=== PATIENT | male | born 1960 | race Caucasian/White ===

== ENCOUNTER 2018-01-03 16:25 | Emergency (ER) | payer BC ==
[2018-01-03 16:46] VITALS: BP 161/101
[2018-01-03] MEDS ORDERED: Amoxicillin/Clavulanate TAB* 875 MG PO ONE (17:38)
--- NOTE | 2018-01-03 17:38 | UC ---
Dental HPI - HPI Summary HPI Summary: ONSET OF RIGHT UPPER TOOTH PAIN YESTERDAY. HAS SOME SWELLING IN HIS RIGHT CHEEK. HAS KNOWN POOR DENTITION WITH FRACTURED TEETH AND DIFFUSE DECAY. NO FEVER, NAUSEA/VOMITING. [place] SO HAS NOT YET ESTABLISHED WITH A PCP OR A DENTIST. - History of Current Complaint Chief Complaint: UCDentalProblem Stated Complaint: TOOTH ABCESS Time Seen by Provider: 01/03/18 17:11 Hx Obtained From: Patient Onset/Duration: Gradual Onset, Lasting Days - 1 DAY, Still Present Severity: Moderate Pain Intensity: 7 Pain Scale Used: 0-10 Numeric Aggravating Factor(s): Chewing Alleviating Factor(s): Nothing - Allergies/Home Medications Allergies/Adverse Reactions: Allergies Allergy/AdvReac Type Severity Reaction Status Date / Time Tetracyclines Allergy Swelling Verified 01/03/18 16:47 PMH/Surg Hx/FS Hx/Imm Hx Cardiovascular History: Hypertension - Surgical History Surgical History: Yes Surgery Procedure, Year, and Place: Heart - Family History Known Family History: Positive: Hypertension - Social History Alcohol Use: Occasionally Substance Use Type: None Smoking Status (MU): Never Smoked Tobacco Review of Systems Constitutional: Negative ENT: Dental Pain Respiratory: Negative Cardiovascular: Negative Gastrointestinal: Negative All Other Systems Reviewed And Are Negative: Yes Physical Exam Triage Information Reviewed: Yes Appearance: Well-Appearing, No Pain Distress, Well-Nourished Vital Signs: Initial Vital Signs Temp 100.5 F 01/03/18 16:43 Pulse 97 01/03/18 16:43 Resp 18 01/03/18 16:43 BP 161/101 01/03/18 16:43 Pulse Ox 100 01/03/18 16:43 Vital Signs Reviewed: Yes Eyes: Positive: Conjunctiva Clear ENT: Positive: Hearing grossly normal Dental: Positive: Percussion Tenderness @ - RIGHT UPPER 1ST PREMOLAR, Gross Decay/Caries @ Neck: Positive: Supple Respiratory: Positive: No respiratory distress, No accessory muscle use Cardiovascular: Positive: Pulses Normal Abdomen Description: Positive: Soft Musculoskeletal: Positive: No Edema Neurological: Positive: Alert Psychological: Positive: Age Appropriate Behavior Skin: Negative: rashes Dental Complaint Course/Dx - Differential Dx/Diagnosis Provider Diagnoses: TOOTHACHE/DENTAL ABSCESS - RIGHT UPPER 1ST PREMOLAR Discharge - Sign-Out/Discharge Documenting (check all that apply): Patient Departure All imaging exams completed and their final reports reviewed: No Studies - Discharge Plan Condition: Stable Disposition: HOME Prescriptions: Amoxicillin/Clavulanate TAB* [Augmentin TAB 875*] 875 mg PO BID #20 tab Chlorhexidine MW 0.12% 473ML* [Peridex Mouth Wash 0.12%*] 15 ml SWISH SPIT BID # 1 bottle Ibuprofen TAB* [Motrin TAB* 800 MG] 800 mg PO Q8H PRN #30 tab PRN Reason: Pain Patient Education Materials: Dental Abscess (ED), Toothache (ED) Referrals: No Primary Care Phys,NOPCP [Primary Care Provider] - Additional Instructions: CALL A DENTIST FIRST THING THURSDAY MORNING. BE SURE TO RINSE YOUR MOUTH WITH WATER EVERY TIME AFTER EATING OR DRINKING. CALL THE NUMBER BELOW FOR ASSISTANCE IN ESTABLISHING WITH A PCP An additional resource available to assist in finding the appropriate physician for your health care needs is [facility] ([facility]). You may contact them by calling [phone]. - Billing Disposition and Condition Condition: STABLE Disposition: Home
== END 2018-01-03 17:44 | disposition home or self-care (01) ==
LOC: UCEAST 16:25
DX: K04.7 Periapical abscess without sinus (principal); K08.89 Other specified disorders of teeth and supporting structures; Z88.1 Allergy status to other antibiotic agents; I10 Essential (primary) hypertension
CPT/HCPCS: 99202; A9270-GY; G0463

== ENCOUNTER 2023-09-05 12:02 | Inpatient (IN) ==
[2023-09-05 12:55] LABS: Hematocrit 35.7 % (38-53); Hemoglobin 12.1 g/dL (13.2-16.3); Mean Corpuscular Hemoglobin 30.3 pg (27-33); Mean Corpuscular Hgb Conc 33.9 g/dL (31-36); Mean Corpuscular Volume 89.3 fL (80-97); Mean Platelet Volume 6.6 fL (7.5-11.2); Platelet Count 351 10^3/uL (150-450); Red Cell Distribution Width 13.8 % (12-17); White Blood Count 17.3 10^3/uL (3.6-10.2)
[2023-09-05 13:15] LABS: Potassium 3.7 mmol/L (3.5-5.0)
[2023-09-05 13:16] LABS: Albumin 4.4 g/dL (3.2-5.2); Albumin/Globulin Ratio 1.8 (1-3); Calcium 11.9 mg/dL (8.6-10.3); Creatinine, Serum 0.81 mg/dL (0.67-1.17); Globulin 2.5 g/dL (2-4); Total Bilirubin 0.6 mg/dL (0.2-1.0); Total Protein 6.9 g/dL (6.4-8.9); eGFR CKD-EPI 99.7 (>60)
[2023-09-05] MEDS ORDERED: Lorazepam PYXIS KEY PRN ×3 (13:21→17:18)
[2023-09-05] MEDS: Lactated Ringers 1000 ml BAG 1,000 ML IV ONE (13:22)
[2023-09-05] MEDS: LORazepam 2 mg VIAL 1 ml IV PUSH ONE ×3 (13:27→17:28)
[2023-09-05] MEDS: Ondansetron 4 mg VIAL 2 MG/ML 2 ml VIAL IV ONE (13:27)
[2023-09-05] MEDS: Pantoprazole VIAL 40 MG VIAL IV ONE (13:28)
[2023-09-05] MEDS: D5NS 0.9% 1000 ml BAG 1,000 ML IV ONE ×2 (14:20→14:54)
[2023-09-05 14:33] LABS: RBC Morphology Normal (Normal)
[2023-09-05 16:07] LABS: Urine Benzodiazepine Screen None Detected (None Detect); Urine Cannabinoids Screen None Detected (None Detect); Urine Opiates Screen None Detected (None Detect)
[2023-09-05 16:29] LABS: Urine Appearance Clear; Urine Bilirubin Negative (Negative); Urine Blood Negative (Negative); Urine Color Light-Yellow; Urine Glucose 4+ (>=1000 mg/dL) (Negative); Urine Ketones 2+ (Negative); Urine Nitrite Negative (Negative); Urine Protein Trace (Negative); Urine Urobilinogen Negative (Negative); Urine pH 5.5 (5.0-8.0)
[2023-09-05] MEDS: Thiamine 100 MG/ML 2 ml VIAL 100 MG, Folic Acid IV 1 MG, Multiple Vitamin IV ADULT 10 M... IV ONE (16:49)
[2023-09-05] MEDS: Tetan/Diph/Pertus SYR(Tdap) 0.5 ML SYR(BOOSTRIX) use SYR contains LATEX IM ONE (21:33)
[2023-09-05 21:49] LABS: Venous Bicarbonate HCO3 28.7 mmol/L (24-28)
[2023-09-05] MEDS: Thiamine 100 MG/ML 2 ml VIAL (200 mg) IM ONE (22:16)
[2023-09-05 22:32] LABS: Calcium 9.1 mg/dL (8.6-10.3); Creatinine, Serum 0.78 mg/dL (0.67-1.17); Magnesium 1.2 mg/dL (1.9-2.7); Potassium 3.3 mmol/L (3.5-5.0); eGFR CKD-EPI 100.8 (>60)
[2023-09-06] MEDS: Magnesium Sulf 4 GM/100 ML IV 4,000 MG/100 ML BAG IVPB ONE (01:02)
[2023-09-06] MEDS: Potassium Chlor 20 meq TAB.ER PO ONE (01:05)
[2023-09-06 06:03] LABS: ABS Monocytes 0.9 10^3/uL (0.0-1.1); ABS Neutrophils 5.6 10^3/uL (1.5-7.6); Eosinophil % 0.3 %; Hematocrit 29.1 % (38-53); Hemoglobin 10.2 g/dL (13.2-16.3); Lymphocyte % 13.4 %; Mean Corpuscular Hemoglobin 31.1 pg (27-33); Mean Corpuscular Hgb Conc 34.9 g/dL (31-36); Mean Corpuscular Volume 89.1 fL (80-97); Nucleated Red Blood Cells % 0.1 %/100WBC (0.0-0.8); Platelet Count 247 10^3/uL (150-450); Red Blood Count 3.27 10^6/uL (4.06-5.63); Red Cell Distribution Width 13.9 % (12-17); White Blood Count 7.5 10^3/uL (3.6-10.2)
[2023-09-06 06:21] LABS: Calcium 9.2 mg/dL (8.6-10.3); Creatinine, Serum 0.75 mg/dL (0.67-1.17); Magnesium 2.4 mg/dL (1.9-2.7); Potassium 3.7 mmol/L (3.5-5.0)
[2023-09-06 08:05] LABS: Phosphorus 1.3 mg/dL (2.5-5.0)
[2023-09-06 09:40] LABS: High Sensitivity Troponin 1 Hr 14 pg/mL (<20)
[2023-09-06] MEDS: Multivitamins/Minerals TAB PO SCH (10:30)
[2023-09-06] MEDS: Potassium Chloride LIQUID 20 MEQ/15 ML LIQUID PO ONE (10:30)
[2023-09-06] MEDS: Calcium Carb (TUMS) 500 mg CHEW TAB PO SCH (10:30)
[2023-09-06] MEDS: NF:Omeprazole 10 mg CAP (NF) PO SCH (12:31)
[2023-09-06] MEDS: Potassium Phosphate IV 15 MMOL in NS 0.9% 250 ml 250 ML IVPB ONE (12:34)
[2023-09-06] MEDS: Enoxaparin 40 MG/0.4 ML SYR SUBCUT SCH (21:46)
[2023-09-07 06:57] LABS: ABS Eosinophils 0.1 10^3/uL (0.0-0.5); ABS Monocytes 0.5 10^3/uL (0.0-1.1); ABS Neutrophils 3.6 10^3/uL (1.5-7.6); Eosinophil % 1.5 %; Hematocrit 27.8 % (38-53); Hemoglobin 9.8 g/dL (13.2-16.3); Lymphocyte % 19.4 %; Mean Corpuscular Hemoglobin 31.6 pg (27-33); Mean Corpuscular Hgb Conc 35.4 g/dL (31-36); Mean Corpuscular Volume 89.2 fL (80-97); Platelet Count 211 10^3/uL (150-450); Red Blood Count 3.11 10^6/uL (4.06-5.63); Red Cell Distribution Width 13.5 % (12-17); White Blood Count 5.2 10^3/uL (3.6-10.2)
[2023-09-07 07:25] LABS: Calcium 8.8 mg/dL (8.6-10.3); Creatinine, Serum 0.83 mg/dL (0.67-1.17); Magnesium 1.5 mg/dL (1.9-2.7); Phosphorus 1.4 mg/dL (2.5-5.0); Potassium 3.5 mmol/L (3.5-5.0)
[2023-09-07 08:23] LABS: Erythrocyte Sed Rate 20 mm/Hr (0-19)
[2023-09-07] MEDS: Magnesium Sulfate 2 gm BAG 2 GM/50 ML BAG IVPB ONE (09:56)
[2023-09-07] MEDS: Potassium & Sodium Phos 250 mg = 1 PACKET PO SCH (09:59)
[2023-09-07] MEDS: Potassium Chlor 20 meq TAB.ER PO ONE (09:59)
[2023-09-07] MEDS: Magnesium Sulf 4 GM/100 ML IV 4,000 MG/100 ML BAG IVPB ONE (12:48)
[2023-09-08 10:41] LABS: HDL Cholesterol 42.1 mg/dL
[2023-09-14 08:27] VITALS: BP 139/72
== END 2023-09-14 13:50 | disposition home or self-care (01) | DRG 754 ==
LOC: ED 12:02 → EDHOLD 12:02 → OBSVTOIN 21:16 → SUATTDRO 21:16 → MEDTELE 23:44 → BSU 09-07 14:50
PROVIDERS: ADMIT Internal Medicine; ATTEND Psychiatry & Neurology Psychiatry